=== PATIENT | female | born 1990 | race Caucasian/White ===

== ENCOUNTER 2017-01-17 18:15 | Emergency (ER) | payer MEDICAID ==
[2017-01-17 18:15] VITALS: BMI 46.5
[2017-01-17 18:37] VITALS: RESP 20
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
[2017-01-17] MEDS ORDERED: Bacitracin 500 Units/gm Oint Foilpak UD ONE (19:07)
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
[2017-01-17 20:38] VITALS: BP 100/60; PULSE 70; TEMP 98.3; O2SAT 100
--- NOTE | 2017-01-18 11:48 | RAD ---
Right ankle three views History: Ankle pain. Comparison: None available. Findings: Mild lateral malleolar soft tissue swelling. No evidence of acute displaced fracture or dislocation. Impression: Lateral malleolar soft tissue swelling. Negative acute. If pain persists, consider MRI.
== END 2017-01-17 20:38 | disposition home or self-care (01) ==
LOC: C.ER 18:15
DX: S31.119A Laceration without foreign body of abdominal wall, unspecified quadrant without penetration into peritoneal cavity, initial encounter (principal); S00.83XA Contusion of other part of head, initial encounter; S90.01XA Contusion of right ankle, initial encounter; X99.0XXA Assault by sharp glass, initial encounter; Y92.9 Unspecified place or not applicable